=== PATIENT | female | born 1940 | race Caucasian/White ===

== ENCOUNTER 2018-01-21 18:07 | Inpatient (IN) ==
[2018-01-21] MEDS ORDERED: Sod Chloride 0.9% Inj 1,000 ML IV.SIG ONE (18:34)
--- NOTE | 2018-01-21 18:39 | ED ---
HPI General Chief complaint: Dizziness Stated complaint: medical Time Seen by Provider: 01/21/18 18:34 History of Present Illness HPI narrative: 77-year-old female who presents for evaluation of episodic hypotension, dizziness, fall. The patient reports that she underwent cervical spinal fusion surgery on December [address] [place] [address] Gunter. She reports that after the surgery she had been having a reduced blood pressure. Her daughter advised that she quit taking her ramipril 10 mg twice a day and so she has not been using it over the past month. She has continued to use her other antihypertensives, atenolol 50 mg twice a day and hydrochlorothiazide 12.5 mg once a day. She reports that she has had nausea and difficulty swallowing because of the neck brace for the past month and she currently feels dehydrated. Today she reports that she started using the ramipril again this morning. She reports that this afternoon she was ambulating and she became dizzy and lightheaded and she fell, hit her head on the ground. She did not lose consciousness. She reports that around 5 PM her family members were checking her blood pressure and it was 60/30, 70/41. Currently she feels improved and the dizziness has resolved. Her blood pressure is 132/60. She reports mild pain in the head from falling. Denies any neck pain or back pain, chest pain, shortness of breath, denies any current nausea. She denies any vomiting, abdominal pain, numbness or tingling or weakness in extremities. Primary care physician is Dr. Menard. Related Data Home Medications Medication Instructions Recorded Confirmed aspirin 81 mg PO DAILY 01/21/18 01/21/18 atenolol 50 mg PO BID 01/21/18 01/21/18 atorvastatin 20 mg PO DAILY 01/21/18 01/21/18 [id number]-xkqmmhumkkswk-tmbp 1 tab PO Q4-6H PRN 01/21/18 01/21/18 calcium carbonate [Calcium 600] 1,200 mg PO BID 01/21/18 01/21/18 hydrochlorothiazide 12.5 mg PO DAILY 01/21/18 01/21/18 levothyroxine 100 mcg PO DAILY 01/21/18 01/21/18 pantoprazole 40 mg PO BID 01/21/18 01/21/18 ramipril 10 mg PO BID 01/21/18 01/21/18 topiramate 50 mg PO HS 01/21/18 01/21/18 Allergies Allergy/AdvReac Type Severity Reaction Status Date / Time No Known Allergies Allergy Verified 01/21/18 18:18 Review of Systems ROS: all other systems reviewed are negative [facility] Medical History Medical History Cervical vertebral fusion (Acute) Hypertension (Acute) Hypothyroidism (Acute) Mitral valve prolapse (Acute) Surgical History Surgical History History of cholecystectomy (Acute) Social History Social History Substance History: No History of Abuse Smoking Status: Never smoker How Often Do You Have a Drink Containing Alcohol: Never Recent Travel in [facility] within the Last 8 Weeks: No Recent Out of Country Travel within the Last 8 Weeks: No Immunization History Tetanus Immunization: Unsure Exam Narrative Exam Narrative: GENERAL: Pleasant well-developed well-nourished female no acute distress cervical collar in place SKIN: Warm and dry. HEAD: Atraumatic. Normocephalic. EYES: Pupils equal and round. No scleral icterus. No injection or drainage. ENT: No nasal bleeding or discharge. Mucous membranes pink and moist. NECK: Trachea midline. No JVD. CARDIOVASCULAR: Regular rate and rhythm. No murmur appreciated. RESPIRATORY: No accessory muscle use. Clear to auscultation. Breath sounds equal bilaterally. GASTROINTESTINAL: Abdomen soft, non-tender, nondistended. Hepatic and splenic margins not palpable. MUSCULOSKELETAL: No obvious deformities. No clubbing. No cyanosis. No edema. NEUROLOGICAL: Awake and alert. No obvious cranial nerve deficits. Motor grossly within normal limits. Normal speech. Course Initial Documented Vital Signs Temperature 97.2 F L 01/21/18 18:12 Pulse Rate 63 01/21/18 18:12 Respiratory Rate 20 01/21/18 18:12 Blood Pressure 132/60 01/21/18 18:12 Pulse Oximetry 100 01/21/18 18:12 Last Documented Vital Signs Temperature 97.2 F L 01/21/18 18:12 Pulse Rate 60 01/21/18 19:02 Respiratory Rate 19 01/21/18 19:02 Blood Pressure 132/60 01/21/18 18:12 Pulse Oximetry 96 01/21/18 19:02 Medical Decision Making MDM Narrative Medical decision making narrative: The patient was placed on ECG monitoring pulse oximetry. A 12-lead EKG was obtained. Lab work, CT the brain, cervical spine ordered. Orthostatic vital signs were obtained. The patient was given a normal saline fluid bolus. Lab work is been reviewed, BUN is 20 and creatinine is 1.75, the daughter at bedside says that her baseline creatinine is around 1.1. Potassium is 2.8. The patient was given 40 mg oral potassium chloride. At this point time the plan is to admit for further treatment. Discussed with Dr. Han. Medical Screen Exam Complete: Yes Emergency Medical Condition: Yes Differential Diagnosis Differential Diagnosis: Iatrogenic hypotension versus dehydration versus electrolyte abnormality versus orthostatic hypotension versus near syncope versus closed head injury versus hypoglycemia Lab Data Result diagrams: 01/21/18 18:40 01/21/18 19:29 Lab Results 01/21/18 01/21/18 Range/Units 18:40 19:29 WBC 11.5 H (4.0-11.0) th/mm3 RBC 4.45 (4.00-5.30) mil/mm3 Hgb 13.2 (11.6-15.3) gm/dL Hct 40.6 (35.0-46.0) % MCV 91.3 (80.0-100.0) fL MCH 29.8 (27.0-34.0) pg MCHC 32.6 (32.0-36.0) % RDW 13.1 (11.6-17.2) % Plt Count 166 (150-450) th/mm3 MPV 10.9 (7.0-11.0) fL Neut % (Auto) 72.7 H (16.0-70.0) % Lymph % (Auto) 13.5 (9.0-44.0) % Elmore % (Auto) 9.4 H (0.0-8.0) % Eos % (Auto) 3.8 (0.0-4.0) % Baso % (Auto) 0.6 (0.0-2.0) % Neut # (Auto) 8.4 H (1.8-7.7) th/mm3 Lymph # (Auto) 1.6 (1.0-4.8) th/mm3 Elmore # (Auto) 1.1 H (0.0-0.9) th/mm3 Eos # (Auto) 0.4 (0.0-0.4) th/mm3 Baso # (Auto) 0.1 (0.0-0.2) th/mm3 WBC Differential . Differential Comment Auto diff final Sodium 138 (136-145) meq/L Potassium 2.8 L* (3.5-5.1) meq/L Chloride 105 (98-107) meq/L Carbon Dioxide 28.7 (21.0-32.0) meq/L Anion Gap 4 L (5-15) meq/L BUN 20 H (7-18) mg/dL Creatinine 1.75 H (0.50-1.00) mg/dL Estimated GFR 28 L (>89) mL/min Random Glucose 121 H (74-106) mg/dL Calcium 7.9 L (8.5-10.1) mg/dL Magnesium 2.0 (1.5-2.5) mg/dL Total Creatine Kinase 89 (26-192) U/L Troponin I Less than 0.02 L (0.02-0.05) ng/mL Imaging Data Radiologist's impression: Cervical Spine CT 01/21/18 18:35 CONCLUSION: 1. No acute cervical spine abnormality is identified. There has been interval ACDF at C3-C6. 2. Stable chronic changes, as above. Head CT 01/21/18 18:35 CONCLUSION: No acute intracranial abnormality is identified. . Discharge Plan Discharge Disposition Patient Disposition: ED Admit(ED Internal Use Only) Discharge Condition Condition: Stable Discharge Order Discharge Orders: ED Use Only Admit Order (Routine); Ordered 01/21/18 Ordered By: Evgeny Henderson Discharge Details Diagnosis: Near syncope, Hypokalemia, Acute kidney injury Physicians Team ED Provider: Neptali Thomson ED Midlevel Provider: Evgeny Henderson Rxs /Orders / Referrals /Forms Prescriptions: No Action atorvastatin 20 mg Tablet 20 mg PO DAILY RF: 0 ucwwxtdksb-vzmhvtnifnebk-jufp 50-325-40 mg Tablet 1 tab PO Q4-6H PRN (Reason: Headache) RF: 0 levothyroxine 100 mcg Tablet 100 mcg PO DAILY RF: 0 calcium carbonate [Calcium 600] 600 mg calcium (1,500 mg) Tablet 1,200 mg PO BID RF: 0 topiramate 25 mg Capsule, Sprinkle 50 mg PO HS RF: 0 pantoprazole 40 mg Tablet,Delayed Release (Dr/Ec) 40 mg PO BID RF: 0 aspirin 81 mg Tablet,Chewable 81 mg PO DAILY RF: 0 atenolol 50 mg Tablet 50 mg PO BID RF: 0 ramipril 10 mg Capsule 10 mg PO BID RF: 0 hydrochlorothiazide 12.5 mg Tablet 12.5 mg PO DAILY RF: 0 Status ED Status: With Doctor
[2018-01-21 18:59] LABS: Baso # (Auto) 0.1 th/mm3 (0.0-0.2); Baso % (Auto) 0.6 % (0.0-2.0); Eos # (Auto) 0.4 th/mm3 (0.0-0.4); Eos % (Auto) 3.8 % (0.0-4.0); Hematocrit 40.6 % (35.0-46.0); Hemoglobin 13.2 gm/dL (11.6-15.3); Lymph # (Auto) 1.6 th/mm3 (1.0-4.8); Lymph % (Auto) 13.5 % (9.0-44.0); Mean Corpuscular HGB Conc 32.6 % (32.0-36.0); Mean Corpuscular Hemoglobin 29.8 pg (27.0-34.0); Mean Corpuscular Volume 91.3 fL (80.0-100.0); Mean Platelet Volume 10.9 fL (7.0-11.0); Mono # (Auto) 1.1 th/mm3 (0.0-0.9); Mono % (Auto) 9.4 % (0.0-8.0); Neut # (Auto) 8.4 th/mm3 (1.8-7.7); Neut % (Auto) 72.7 % (16.0-70.0); Platelet Count 166 th/mm3 (150-450); Red Blood Count 4.45 mil/mm3 (4.00-5.30); Red Cell Distribution Width 13.1 % (11.6-17.2); White Blood Count 11.5 th/mm3 (4.0-11.0)
[2018-01-21 20:08] LABS: Anion Gap 4 meq/L (5-15); Blood Urea Nitrogen 20 mg/dL (7-18); Calcium 7.9 mg/dL (8.5-10.1); Carbon Dioxide 28.7 meq/L (21.0-32.0); Chloride 105 meq/L (98-107); Glomerular Filtration Rate 28 mL/min (>89); Glucose,Random 121 mg/dL (74-106); Sodium 138 meq/L (136-145)
--- NOTE | 2018-01-21 20:11 | CT ---
EXAM DATE: 01/21/2018 7:56 PM EST AGE/SEX: 77 years / Female INDICATIONS: Trauma; fall. Patient hit the back of her head; recent cervical fusion. CLINICAL DATA: This is the patient's initial encounter. Patient reports that signs and symptoms have been present for 1 day and indicates a pain score of 7/10. MEDICAL/SURGICAL HISTORY: Hypertension. Hypothyroidism. Mitral valve prolapse Cholecystectomy. Ce rvical spine fusion RADIATION DOSE: 34.84 CTDI (mGy) COMPARISON: No prior exams available for comparison. TECHNIQUE: CT of the head without contrast. Using automated exposure control and adjustment of the mA and/or kV according to patient size, radiation dose was kept as low as reasonably achievable to ob tain optimal diagnostic quality images. DICOM format image data is available electronically for revi ew and comparison. FINDINGS: Cerebrum: The ventricles are normal. No midline shift, mass lesion, hemorrhage or acute infarction. No extraaxial fluid collections are seen. Posterior Fossa: The cerebellum and brainstem demonstrate no acute abnormality. The 4th ventricle is midline. The cerebellopontine angle is within normal limits. Extracranial: There is a mucoperiosteal thickening versus secretions in the right maxillary antrum. There has been prior bilateral cataract surgery. Skull: The calvaria is intact. No skull fracture. CONCLUSION: No acute intracranial abnormality is identified. . Electronically signed by: Jairon Thomas MD 01/21/2018 8:09 PM EST
[2018-01-21 20:16] LABS: Creatine Kinase 89 U/L (26-192); Potassium 2.8 meq/L (3.5-5.1)
--- NOTE | 2018-01-21 20:32 | CT ---
EXAM DATE: 01/21/2018 8:00 PM EST AGE/SEX: 77 years / Female INDICATIONS: Trauma; fall. CLINICAL DATA: This is the patient's initial encounter. Patient reports that signs and symptoms have been present for 1 day and indicates a pain score of 7/10. MEDICAL/SURGICAL HISTORY: Hypertension. Hypothyroidism. Mitral valve prolapse Cholecystectomy . Cervical fusion RADIATION DOSE: 15.29 CTDI (mGy) COMPARISON: PCI, CT CERVICAL SPINE W/O CONTRAST, 11/06/2017. . TECHNIQUE: Contiguous axial images were obtained using helical multirow detector technique. The vol umetric data was post-processed with multiplanar reconstruction in oblique axial, sagittal, and coron al planes. Using automated exposure control and adjustment of the mA and/or kV according to patient s ize, radiation dose was kept as low as reasonably achievable to obtain optimal diagnostic quality joellen ges. DICOM format image data is available electronically for review and comparison. FINDINGS: There has been interval anterior cervical discectomy and fusion at C3-C6 with anterior plate and scre ws. There are no findings to suggest hardware failure. Hardware has also been placed in the interveni ng disc spaces. No prevertebral soft tissue swelling is present. There is a stable 2 mm of anterolist hesis of C7 on T1. The atlantoaxial relationship is within normal limits. There is degenerative lombardo e at the atlantodens interval with stable cystic area in the right aspect of the body of C2 and stabl e nonspecific mineralization between the posterior elements of C1 and C2 on the left. No acute fractu re or dislocation is identified. No large disc herniation is seen in the upper cervical spine but the re is prominent posterior osteophyte at the C4 level. There is also a prominent posterior osteophyte at C6-C7. The visualized surrounding soft tissues demonstrate no acute abnormality. CONCLUSION: 1. No acute cervical spine abnormality is identified. There has been interval ACDF at C3-C6. 2. Stable chronic changes, as above. Electronically signed by: Jairon Thomas MD 01/21/2018 8:31 PM EST
[2018-01-21] MEDS ORDERED: Sod Chloride 0.9% Inj 1,000 ML IV.CONT SCH (20:45)
[2018-01-21] MEDS ORDERED: Sod Chloride 0.9% Inj 1,000 ML ONE (21:43)
--- NOTE | 2018-01-21 21:59 | US ---
EXAM DATE: 01/21/2018 9:38 PM EST AGE/SEX: 77 years / Female INDICATIONS: Syncope. CLINICAL DATA: This is the patient's initial encounter. Patient reports that signs and symptoms have been present for 1 day and indicates a pain score of 0/10. MEDICAL/SURGICAL HISTORY: Hypertension. Hypothyroidism. Cervical vertebral fusion. Mitral valv e prolapse. Cholecystectomy. COMPARISON: No prior exams available for comparison. VELOCITY PARAMETERS: ICA/CCA Ratio: Right 1.1 , Left 1.0 ICA: Right 117 cm/sec, Left 116 cm/sec CCA: Right 110 cm/sec, Left 118 cm/sec ECA: Right 113 cm/sec, Left 136 cm/sec Vertebral: Right 83 cm/sec antegrade, Left Not visualized. cm/sec FINDINGS: Right Carotid: There is minimal calcified plaque in the carotid bulb.The waveforms are within normal limits. Left Carotid: There is minimal plaque in the carotid bulb. The waveforms are within normal limits. Other: None. CONCLUSION: 1. Right Internal Carotid Artery: Findings indicate <50% stenosis. 2. Left Internal Carotid Artery: Findings indicate <50% stenosis. 3. Left vertebral artery is not identified and therefore could be occluded. Electronically signed by: Jairon Thomas MD 01/21/2018 9:58 PM EST
[2018-01-22] MEDS ORDERED: Melatonin 5 MG Tablet PO ONE (03:10)
--- NOTE | 2018-01-22 09:35 | P.HPIM ---
History of Present Illness Primary Care Physician: Claudio Menard History of Present Illness: 77 yo F with h/o HTN, Hypothyroidism, who presented to the hospital after having passed out. Patients reports having spinal fusion surgery in December and is on a neck collar. Her oral intake has been poor since she has been unable to swallow solids. She has been taking liquids but probably not sufficient. 3 weeks ago her daughter noted patient's BP was low and advised patient to stop taking Ramipril which she did and make appt with PCP which patient has not been able to. Apparently BP stabilized at the time. Patient's PO intake remained poor. She continued to take HCTZ and Atenolol. Yesterday patient noted her BP was OK, so she decided to take Ramipril. She later started experiencing dizziness and lightheadedness when she stood. She fell and hit her head on the ground. Her checked her blood pressure at the time and it ranged between 60/30 to 70/40. Patient was brought to the ER. ROS:Denies any neck pain or back pain, chest pain, shortness of breath, denies any current nausea. She denies any vomiting, abdominal pain,or diarrhea. No numbness or tingling or weakness in extremities. No changes in micturition habits. On presentation to ER, she was noted to have Cr 1.75, K 2.8, radiographic tests did not show any acute findings. Patient was started on IV fluids with potassium replacement and subsequently admitted to the med surg floor. At the time of this clinic evaluation patient was laying in bed, denied any dizziness/lightheadedness. Inpatient Certification Inpatient Certification: I certify that the inpatient services were ordered in accordance with Medicare regulations governing the order. This includes certification that hospital inpatient services are reasonable and necessary and in the case of services not specified as inpatient-only under 42 CFR 419.22(n), that they are appropriately provided as inpatient services in accordance to with the 2-midnight benchmark under 43 CFR 412.3(e) Estimated Total Length of Stay (Days): 2 Plans for Post Hospital Care: Not yet determined Review of Systems Review of Systems: all other systems reviewed are negative [facility] Medical History Medical History Cervical vertebral fusion (Acute) Hypertension (Acute) Hypothyroidism (Acute) Mitral valve prolapse (Acute) Surgical History Surgical History History of cholecystectomy (Acute) Family History Family History Mother No problems noted. Father H/O: stroke Brother H/O prostate cancer Social History Social History Substance History: No History of Abuse Second Hand Smoke Exposure: No Smoking Status: Never smoker How Often Do You Have a Drink Containing Alcohol: 2 to 4 times a month Recent Travel in [facility] within the Last 8 Weeks: No Recent Out of Country Travel within the Last 8 Weeks: No Immunization History Tetanus Immunization: Unsure Medications and Allergies Allergies Allergy/AdvReac Type Severity Reaction Status Date / Time No Known Allergies Allergy Verified 01/21/18 18:18 Home Medications Medication Instructions Recorded Confirmed Type aspirin 81 mg PO DAILY 01/21/18 01/21/18 History atenolol 50 mg PO BID 01/21/18 01/21/18 History atorvastatin 20 mg PO DAILY 01/21/18 01/21/18 History dhhaebtaok-rodjtnvghjehh-tpga 1 tab PO Q4-6H PRN 01/21/18 01/21/18 History calcium carbonate [Calcium 600] 1,200 mg PO BID 01/21/18 01/21/18 History hydrochlorothiazide 12.5 mg PO DAILY 01/21/18 01/21/18 History levothyroxine 100 mcg PO DAILY 01/21/18 01/21/18 History pantoprazole 40 mg PO BID 01/21/18 01/21/18 History ramipril 10 mg PO BID 01/21/18 01/21/18 History topiramate 50 mg PO HS 01/21/18 01/21/18 History Active Medications: Active Medications Potassium Chloride/Sodium Chloride (Ns + Kcl 20 Meq Inj) 1,000 mls @ 100 mls/ hr IV.CONT .Q10H JESSICA Last Infusion: 01/22/18 09:17 Dose: Infused Sodium Chloride (Ns Flush) 2 ml IV.FLUSH PRN PRN PRN Reason: FLUSH AFTER USING IV ACCESS Last Admin: 01/22/18 03:24 Dose: 2 ml Physical Exam Vital signs: Last Vital Signs Temp 98.4 F 01/22/18 04:00 Pulse 61 01/22/18 04:00 Resp 18 01/22/18 04:00 BP 125/59 L 01/22/18 04:00 Pulse Ox 97 01/22/18 04:00 Intake & Output 01/20/18 01/21/18 01/22/18 01/23/18 06:59 06:59 06:59 06:59 Intake Total 1240 / 1240 1000 / 1000 Output Total 600 / 600 Balance 640 / 640 1000 / 1000 Weight 80 kg Narrative: GENERAL:elderly woman in good general condition, not in distress HEENT:not pale,anicteric, has dry oral mucous membranes. NECK:neck collar in situ CARDIOVASCULAR: Regular rate and rhythm without murmurs, gallops, or rubs. RESPIRATORY: Clear to auscultation. Breath sounds equal bilaterally. No wheezes , rales, or rhonchi. GASTROINTESTINAL: Abdomen soft, non-tender, nondistended. Normal active bowel sounds MUSCULOSKELETAL: Extremities without clubbing, cyanosis, or edema. NEURO: Alert & Oriented x4 to person, place, time, situation. Moves all ext x4 Results Labs CBC & Chem 7: 01/22/18 10:11 01/22/18 10:11 Imaging Impressions Carotid Doppler Study 01/21/18 00:00 CONCLUSION: 1. Right Internal Carotid Artery: Findings indicate <50% stenosis. 2. Left Internal Carotid Artery: Findings indicate <50% stenosis. 3. Left vertebral artery is not identified and therefore could be occluded. Cervical Spine CT 01/21/18 18:35 CONCLUSION: 1. No acute cervical spine abnormality is identified. There has been interval ACDF at C3-C6. 2. Stable chronic changes, as above. Head CT 01/21/18 18:35 CONCLUSION: No acute intracranial abnormality is identified. . Caprini VTE Risk Assessment Caprini VTE Risk Assessment: No/Low Risk (score <= 1) Caprini Risk Assessment Model: Point Value = 1 Point Value = 2 Point Value = 3 Point Value = 5 Age 41-60 Minor surgery BMI > 25 kg/m2 Swollen legs Varicose veins or History of unexplained or recurrent spontaneous Oral contraceptives or hormone replacement Sepsis (< 1 month) Serious lung disease, including pneumonia (< 1 month) Abnormal pulmonary function Acute myocardial infarction Congestive heart failure (< 1 month) History of inflammatory bowel disease Medical patient at bed rest Age 61-74 Arthroscopic surgery Major open surgery (> 45 min) Laparoscopic surgery (> 45 min) Malignancy Confined to bed (> 72 hours) Immobilizing plaster cast Central venous access Age >= 75 History of VTE Family history of VTE Factor V Leiden Prothrombin [id number] Lupus anticoagulant Anticardiolipin antibodies Elevated serum homocysteine Heparin-induced thrombocytopenia Other congenital or acquired thrombophilia Stroke (< 1 month) Elective arthroplasty Hip, pelvis, or leg fracture Acute spinal cord injury (< 1 month) Prophylaxis Regimen: Total Risk Factor Score Risk Level Prophylaxis Regimen 0-1 Low Early ambulation 2 Moderate Order ONE of the following: *Sequential Compression Device (SCD) *Heparin 5000 units SQ BID 3-4 Higher Order ONE of the following medications: *Heparin 5000 units SQ TID *Enoxaparin/Lovenox 40 mg SQ daily (WT < 150 kg, CrCl > 30 mL/min) *Enoxaparin/Lovenox 30 mg SQ daily (WT < 150 kg, CrCl > 10-29 mL/min) *Enoxaparin/Lovenox 30 mg SQ BID (WT < 150 kg, CrCl > 30 mL/min) AND/OR *Sequential Compression Device (SCD) 5 or more Highest Order ONE of the following medications: *Heparin 5000 units SQ TID (Preferred with Epidurals) *Enoxaparin/Lovenox 40 mg SQ daily (WT < 150 kg, CrCl > 30 mL/min) *Enoxaparin/Lovenox 30 mg SQ daily (WT < 150 kg, CrCl > 10-29 mL/min) *Enoxaparin/Lovenox 30 mg SQ BID (WT < 150 kg, CrCl > 30 mL/min) AND *Sequential Compression Device (SCD) Assessment and Plan Plan 77 yo F with h/o HTN, Hypothyroidism, recent C-spine fusion surgery(12/2017) who presented after a syncopal episode. 1.Syncope: Multifactorial due to volume depletion/hypotension in setting of poor po intake and continued diuretic and antihypertensive use. Hold antihypertensive medication. continue IV fluids with K replacement. keep on fall precaution. 2.Acute kidney injury: due to volume depletion/hypotension as above. keep on Hydration. hypothyroidism-continue levothyroxine
[2018-01-22 10:37] LABS: Baso % (Auto) 0.2 % (0.0-2.0); Eos # (Auto) 0.4 th/mm3 (0.0-0.4); Eos % (Auto) 5.2 % (0.0-4.0); Hematocrit 34.1 % (35.0-46.0); Hemoglobin 11.6 gm/dL (11.6-15.3); Lymph # (Auto) 1.1 th/mm3 (1.0-4.8); Lymph % (Auto) 13.4 % (9.0-44.0); Mean Corpuscular HGB Conc 33.9 % (32.0-36.0); Mean Corpuscular Hemoglobin 30.8 pg (27.0-34.0); Mean Corpuscular Volume 90.8 fL (80.0-100.0); Mean Platelet Volume 10.3 fL (7.0-11.0); Mono # (Auto) 0.8 th/mm3 (0.0-0.9); Mono % (Auto) 9.3 % (0.0-8.0); Neut % (Auto) 71.9 % (16.0-70.0); Platelet Count 132 th/mm3 (150-450); Red Blood Count 3.76 mil/mm3 (4.00-5.30); Red Cell Distribution Width 13.5 % (11.6-17.2); White Blood Count 8.4 th/mm3 (4.0-11.0)
[2018-01-22 10:55] LABS: Calcium 8.4 mg/dL (8.5-10.1); Carbon Dioxide 25.9 meq/L (21.0-32.0); Potassium 3.2 meq/L (3.5-5.1)
--- NOTE | 2018-01-22 12:55 | ECHRPT ---
Indication: SYNCOPE CONCLUSIONS Normal left ventricular size. Wall thickness is normal. The left ventricular systolic function is n ormal with an estimated ejection fraction in the range of 60-65%. No regional wall motion abnormalities are pr esent. Possible patent foramen ovale. Trace mitral valve regurgitation. Trileaflet aortic valve. The aortic valve is not well visualized. 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 No aortic valve stenosis or regurgitation. There is trace tricuspid valve regurgitation. The estimated pulmonary arterial pressure is 40 mmHg. BP: / HR: Rhythm: Sinus MEASUREMENTS (Male / Female) Normal Values Technical Quality:Fair 2D ECHO LV Diastolic Diameter PLAX 5.0 cm 4.2 - 5.9 / 3.9 - 5.3 cm LV Systolic Diameter PLAX 3.7 cm IVS Diastolic Thickness 0.8 cm 0.6 - 1.0 / 0.6 - 0.9 cm LVPW Diastolic Thickness 0.7 cm 0.6 - 1.0 / 0.6 - 0.9 cm LV Relative Wall Thickness 0.3 RV Internal Dim ED PLAX 3.0 cm LVOT Diameter 1.8 cm Aortic Root Diameter 2.7 cm DOPPLER AV Peak Velocity 162.0 cm/s AV Peak Gradient 10.5 mmHg LVOT Peak Velocity 138.0 cm/s LVOT Peak Gradient 7.6 mmHg AV Area Cont Eq pk 2.2 cm Mitral E Point Velocity 118.0 cm/s Mitral A Point Velocity 141.0 cm/s Mitral E to A Ratio 0.8 LV E' Lateral Velocity 7.7 cm/s Mitral E to LV E' Lateral Ratio 15.3 LV E' Septal Velocity 8.1 cm/s Mitral E to LV E' Septal Ratio 14.6 TR Peak Velocity 286.0 cm/s TR Peak Gradient 32.7 mmHg Right Atrial Pressure 10.0 mmHg Pulmonary Artery Systolic Pressu 42.7 mmHg Right Ventricular Systolic Press 42.7 mmHg PV Peak Velocity 75.9 cm/s PV Peak Gradient 2.3 mmHg FINDINGS LEFT VENTRICLE Normal left ventricular size. Wall thickness is normal. The left ventricular systolic function is n ormal with an estimated ejection fraction in the range of 60-65%. No regional wall motion abnormalities are pr esent. RIGHT VENTRICLE Normal right ventricular size and systolic function. LEFT ATRIUM The left atrial size is normal. RIGHT ATRIUM The right atrial size is normal. ATRIAL SEPTUM Possible patent foramen ovale is present. AORTA The aortic root and proximal ascending aorta are normal in size on limited imaging. MITRAL VALVE Trace mitral valve regurgitation. AORTIC VALVE Trileaflet aortic valve. The aortic valve is not well visualized. 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 No aortic valve stenosis or regurgitation. TRICUSPID VALVE There is trace tricuspid valve regurgitation. The estimated pulmonary arterial pressure is 40 mmHg. PULMONARY VALVE Trivial pulmonary valve regurgitation. VESSELS The inferior vena cava is normal in size. PERICARDIUM No pericardial effusion. Robles Lee MD (Electronically Signed) Final Date:22 January 2018 12:54
[2018-01-22] MEDS ORDERED: Potassium Chloride 25 MEQ Effervescent Tablet PO ONE (14:00)
--- NOTE | 2018-01-22 16:33 | P.DIET ---
Nutritional Evaluation Type of nutrition evaluation: initial Nutrition screening: Weight Loss > 10 lbs, MDC (Supplement to PO intake) Screening comments: 01/22 WLS, supplement to oral intake Objective - Diagnosis AGUILA, hypokalemia, near syncope - Objective Body Mass Index: 29.9 % IBW: 145 (IBW = 120lb) Body Weight Used for Calculations: IBW Energy Needs - Lower Range (kCal/kg): 28 Energy Needs - Upper Range (kCal/kg): 32 Lower Limit kCal/kg (kCals): 1,527 Upper Limit kCal/kg (kCals): 1,745 Lower Limit Protein Factor (Grams per Kg): 1.1 Upper Limit Protein Factor (Grams per Kg): 1.3 Lower Protein Needs (Protein): 60 Upper Protein Needs (Protein): 71 Dietitian Reviewed in Medical Record: Current diet, Curent medications, Intake & Output, Labs, Medical history Diet Order: cardiac Objective Comments: PMH: cervical vertebral fusion (12/14), HTN, hypothyroidism, mitral valve prolapse Labs: Cr 1.43, GFR 36, random glucose 121 126 Assessment Assessment: Pt currently at nutritional risk r/t reported unplanned wt loss. MDC for supplement to oral intake received 01/22. RD to recommend Ensure Enlive TID as PO supplement for additional nutrition. Continue to monitor PO and supplement intake. Wt noted, CBW = 79.1kg. Labs reviewed, dietitian following. Recommendations: 1. RD to recommend Ensure Enlive TID as PO supplement for additional nutrition 2. Continue to monitor PO and supplement intake 3. Dietitian following Dietitian to Monitor: Lab values, Supplement acceptance, Intake & Output, Diet tolerance, PO Intake, Medical course
[2018-01-22] MEDS ORDERED: ALPRAZolam 0.25 MG Tablet PO ONE (20:58)
[2018-01-22] MEDS: Atenolol 25 MG Tablet PO SCH (22:16)
[2018-01-23 05:19] LABS: Calcium 8.1 mg/dL (8.5-10.1); Carbon Dioxide 23.5 meq/L (21.0-32.0); Potassium 3.5 meq/L (3.5-5.1)
[2018-01-23] MEDS: Atenolol 25 MG Tablet PO SCH (08:55)
--- NOTE | 2018-01-23 10:20 | ECG ---
Date Performed: 01/21/2018 Time Performed: 18:40:09 PTAGE: 77 years EKG: Sinus rhythm Nonspecific ST and T wave abnormalities BORDERLINE ECG NO PREVIOUS TRACING DOCTOR: Delmar Reece Interpretating Date/Time 01/23/2018 10:18:49
--- NOTE | 2018-01-23 10:22 | ECG ---
Date Performed: 01/21/2018 Time Performed: 19:19:15 PTAGE: 77 years EKG: Sinus rhythm WITH FREQUENT VENTRICULAR PREMATURE COMPLEXES ABNORMAL RHYTHM ECG PREVIOUS TRACING : 01/21/2018 18.40 DOCTOR: Delmar Reece Interpretating Date/Time 01/23/2018 10:20:18
[2018-01-23 16:01] VITALS: BP 153/70; PULSE 74; RESP 17; TEMP 98; O2SAT 99
--- NOTE | 2018-01-23 16:22 | P.PNIM ---
Subjective Interval history: Patient is in no acute distress. She does not have any specific complaints this afternoon. Physical Exam Vital signs: Vital Signs 01/22/18 17:00 01/22/18 18:00 01/22/18 19:00 Temperature Pulse Rate 69 70 69 Respiratory Rate Blood Pressure Pulse Oximetry 01/22/18 20:00 01/22/18 21:00 01/22/18 22:00 Temperature 98.2 F Pulse Rate 79 70 74 Respiratory Rate 16 Blood Pressure 166/122 H Pulse Oximetry 95 01/22/18 22:45 01/22/18 23:00 01/23/18 00:00 Temperature 98.1 F Pulse Rate 79 75 Respiratory Rate 16 16 Blood Pressure 115/62 Pulse Oximetry 97 01/23/18 01:00 01/23/18 02:00 01/23/18 03:00 Temperature Pulse Rate 66 70 70 Respiratory Rate Blood Pressure Pulse Oximetry 01/23/18 04:00 01/23/18 05:00 01/23/18 07:00 Temperature 98.3 F Pulse Rate 69 66 68 Respiratory Rate 16 Blood Pressure 130/61 Pulse Oximetry 96 01/23/18 07:41 01/23/18 08:00 01/23/18 09:00 Temperature 97.8 F Pulse Rate 70 71 80 Respiratory Rate 16 Blood Pressure 122/58 L Pulse Oximetry 97 01/23/18 09:59 01/23/18 11:00 01/23/18 12:00 Temperature 97.9 F Pulse Rate 80 76 76 Respiratory Rate 18 Blood Pressure 148/68 H Pulse Oximetry 97 01/23/18 13:00 01/23/18 14:00 01/23/18 15:00 Temperature Pulse Rate 74 76 75 Respiratory Rate Blood Pressure Pulse Oximetry 01/23/18 15:57 01/23/18 15:58 Temperature 98 F Pulse Rate 75 74 Respiratory Rate 17 Blood Pressure 153/70 H Pulse Oximetry 99 Intake & Output 01/22/18 01/23/18 01/23/18 18:59 06:59 18:59 Intake Total 2040 / 2040 1280 / 1280 Output Total 400 / 400 350 / 350 Balance 1640 / 1640 930 / 930 Weight 79.1 kg 80 kg Intake: IV 1200 / 1200 800 / 800 NS + KCl 20 mEq Inj 1,000 ML @ 1200 / 1200 800 / 800 100 mls/hr IV.CONT .Q10H JESSICA Rx #:[id number] Oral 840 / 840 480 / 480 Output: Urine 400 / 400 350 / 350 Other: # Voids 1 3 Date of Last Bowel Movement 01/21/18 01/22/18 # Bowel Movements 0 Weight On Admission 79.1 kg Narrative: General patient in no acute distress HEENT extraocular movements are intact, c-collar in place Cardiovascular S1-S2 audible, no chest pain, no palpitations Respiratory clear to auscultation bilaterally Abdomen soft, nontender, nondistended, normal bowel sounds Extremities no edema 2+ distal pulses in bilateral upper and lower extremities Neuro cranial nerves II through XII intact Results - Labs CBC & Chem 7: 01/22/18 10:11 01/23/18 03:36 Laboratory Results - last 24 hr 01/23/18 03:36 Sodium 142 Potassium 3.5 Chloride 110 H Carbon Dioxide 23.5 Anion Gap 9 BUN 13 Creatinine 1.10 H Estimated GFR 48 L Random Glucose 96 Calcium 8.1 L Assessment and Plan - Plan 1. Presyncope likely secondary to dehydration 2. Acute kidney injury likely secondary to #1 and medications. This patient is a 77-year-old female with a diagnosis of hypertension, hypothyroidism who presented to the emergency department after a presyncopal episode while she was at home. The patient takes hydrochlorothiazide, atenolol , and ramipril for blood pressure control. She recently had surgery on her neck and says she has having poor p.o. intake since the surgical procedure. As per the augmentation the patient's checked her blood pressure and systolics were noted to be in the 60s and 70s. She was evaluated in the emergency department and was found to have an elevated serum creatinine of 1.75. Potassium was also low. An EKG was done which showed normal sinus rhythm no acute ST segment or T wave changes. The patient denied any chest pain or palpitations prior to the presyncopal episode. Troponins were negative. Carotid ultrasound was done which did not show any significant stenosis of the carotids. No significant events noted on telemetry. She has been a symptomatic since after being discharged and after the initiation of IV fluids. Her serum creatinine has now normalized. Hydrochlorthiazide and Avapro will be held upon discharge. Norvasc will be added to the patient's antihypertensive medication regimen. She can follow-up with her primary care doctor in the next 1 week and her blood pressure and renal panel can be checked and medications can be adjusted as needed. As per the patient she has scheduled lower back surgery in the next month or 2. Currently she has a c-collar in place given her recent surgery. She was advised to follow-up with her primary care doctor as well as her surgeon regarding her neck and lower back pain. Patient was advised to avoid NSAIDs.
--- NOTE | 2018-01-24 23:29 | HM ---
Date Performed: 01/22/2018 Time Performed: 16:58:00 HOOKUP DATE: 01/22/18 04:58:00 PM Mon ANALYSIS START TIME: 01/22/2018 5:03:00 PM ANALYSIS END TIME: 01/23/2018 5:06:59 PM PATIENT AGE: 77 PATIENT HEIGHT: 64 PATIENT WEIGHT: 174 DRUG LIST: ROOM [id number] PATIENT DIAGNOSIS: HYPOKALEMIA NEAR SYNCOPE TEST NARRATIVE: The patient's average heart rate was 73 BPM. No episodes of tachycardia wer e noted. No episodes of bradycardia were noted. No pauses exceeding 2.0 seconds were noted. 24 ventricular ectopics, which represented < 1% of the total beat count, were noted. The highest faye tricular ectopic frequency occurred from 09:00 AM to 10:00 AM Tue. During this time 7 VE(s) occurred . Ventricular ectopics were observed as 24 isolated beat(s) only. No couplets or runs were noted. No supraventricular ectopics were noted. No episodes of ST depression (defined as -1.0 mm or m ore) were noted in channel 1. No episodes of ST depression (defined as -1.0 mm or more) were noted i n channel 2. No episodes of ST depression (defined as -1.0 mm or more) were noted in channel 3. NO D IARY WAS GIVEN TO PATIENT TEST INTERPRETATION: Normal Sinus rhythm throughout. Occasional PVC(s). No pauses >2 seconds. Signed by : Nicola Loera
== END 2018-01-23 16:54 | disposition home or self-care (01) ==
LOC: NEPE 18:07 → NEDA 20:40 → HCPC 22:19
PROVIDERS: ADMIT Hospitalist; ATTEND Hospitalist